=== PATIENT | female | born 1990 ===

== ENCOUNTER 2020-12-02 08:22 | Emergency (ER) | payer MEDICARE, MEDICAID, SELFPAY ==
[2020-12-02 08:25] VITALS: BP 102/82; PULSE 105; RESP 18; TEMP 36.6; O2SAT 100; BMI 23.9
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
--- NOTE | 2020-12-02 09:27 | PC.NURSE ---
Edit to triage completed on patients arrival to ED. Patient states she is not .
== END 2020-12-02 09:05 | disposition left against medical advice (07) ==
PROVIDERS: Emergency Provider Emergency Medicine
DX: S40.871A Other superficial bite of right upper arm, initial encounter (principal); M79.601 Pain in right arm; Y04.1XXA Assault by human bite, initial encounter; Y93.9 Activity, unspecified; Y92.9 Unspecified place or not applicable; Y99.9 Unspecified external cause status
CPT/HCPCS: 90471; 99282; 99284

== ENCOUNTER 2021-02-28 17:24 | Emergency (ER) | payer MEDICARE, MEDICAID, SELFPAY | END 2021-02-28 20:18 | disposition left against medical advice (07) | LOC: HO.ED 20:03 | PROVIDERS: Emergency Provider Emergency Medicine | DX: N23 Unspecified renal colic (principal) ==

== ENCOUNTER 2021-03-01 06:09 | Emergency (ER) | payer MEDICARE, MEDICAID, SELFPAY ==
--- NOTE | ~2021-03-01 | US_ITS ---
EXAMINATION: RENAL ULTRASOUND. CLINICAL INFORMATION: Right-sided flank pain. Evaluate for stone. COMPARISON: None TECHNIQUE: Routine grayscale imaging of kidneys is performed. FINDINGS: The right kidney is normal size, shape and density. It measures 11.0 cm in length, 3.5 cm in AP and 6.1 cm in transverse dimension. There is normal cortical thickness. No echogenic stones, cysts or hydronephrosis seen. There is minimal fullness of kidney pelvis. The left kidney was not imaged. US/US renal RT IMPRESSION: Unremarkable right kidney exam. No echogenic stone seen.
[2021-03-01 06:34] VITALS: BP 125/79; PULSE 114; RESP 18; TEMP 37.4; O2SAT 98; BMI 23.9
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
[2021-03-01] MEDS: 0.9 % Sodium Chloride 1,000 ML 999 ML IVCONT (07:50)
[2021-03-01 07:55] LABS: Basophils Percent Auto 0.2 % (0-2); Eosinophils Percent Auto 0.2 % (0-4); Hematocrit 36.2 % (37-47); Hemoglobin 12.1 g/dl (12.0-16.0); Imm Gran Abs Auto 0.15 X10*3/uL (0.00-0.03); Imm Gran Pct Auto 0.9 % (0.0-0.4); Lymphocytes Absolute Auto 1.1 X10*3/uL (1.2-4.9); Lymphocytes Percent Auto 6.7 % (20-40); MANUAL DIFF FLAG SCAN; Mean Corpuscular HGB Conc 33.4 g/dl (31.0-35.0); Mean Corpuscular Hemoglobin 29.4 pg (27.0-33.0); Mean Corpuscular Volume 87.9 fL (80-98); Mean Platelet Volume 9.8 fL (9.4-12.3); Monocytes Absolute Auto 1.6 X10*3/uL (0.1-1.2); Monocytes Percent Auto 9.4 % (2-11); Neutrophils Percent Auto 82.6 % (45-73); Platelet Count 200 X10*3/uL (160-400); Red Blood Count 4.12 X10*6/uL (4.20-5.50); Red Cell Distribution Width 12.8 % (11.0-16.0); SCAN SMEAR FLAG 1
[2021-03-01] MEDS: HYDROcodone Bit/Acetam 5/325 TABLET 1 TAB PO (07:55)
[2021-03-01 07:56] LABS: Glucose Urine UA NEG (NEG); Leukocyte Esterase Urine 2+ (NEG); Nitrite Urine POS (NEG); UACC Culture Trigger YES; Urine Blood 1+ (NEG); Urine Ketones 5 MG/DL (NEG); Urine Protein 2+ MG/DL (NEG-TRACE)
[2021-03-01] MEDS: Ketorolac Tromethamine 15 MG/ML VIAL IVPUSH (07:56)
[2021-03-01] MEDS: ondansetron HCL 4 MG/2 ML VIAL IVPUSH (07:56)
[2021-03-01 07:58] LABS: Appearance Urine CLOUDY; Color Urine YELLOW
[2021-03-01 07:59] LABS: UPreg QC Valid YES; Urine Pregnancy NEGATIVE (NEGATIVE)
[2021-03-01 08:06] LABS: Bacteria Urine 2+ /LPF; Mucus Urine 1+ /LPF; Squamous Epithelial Cell Urine 2+ /LPF
[2021-03-01 08:18] LABS: Alanine Aminotransferase 12 U/L (0-31); Albumin Level 3.7 g/dL (3.5-5.0); Alkaline Phosphatase 96 U/L (39-117); Anion Gap 14 (12-20); Aspartate Amino Transferase 15 U/L (5-31); Bilirubin Direct 0.2 mg/dL (0.0-0.5); Bilirubin Total 0.6 mg/dL (0.0-1.0); Blood Urea Nitrogen 7 mg/dL (9-16); Calcium 8.9 mg/dL (8.4-10.2); Carbon Dioxide 21 mmol/L (22-29); Chloride 104 mmol/L (96-108); Creatinine Clr Calc Pharmacy 83.2; Estimated Glomerular Filt Rate > 60; Glucose Random 109 mg/dL (60-115); Lipase 10 U/L (8-78); Magnesium 1.9 mg/dL (1.6-2.6); Potassium 3.6 mmol/L (3.3-5.1); SLIDE REVIEW VERIFIED; Sodium 135 mmol/L (135-145); Total Protein 6.5 g/dL (6.5-8.0)
[2021-03-01] MEDS: cefTRIAXone sodium 1 GM in 0.9 % Sodium Chloride 50 ML IV (08:40)
[2021-03-01 08:50] VITALS: BP 107/56; PULSE 79; RESP 18; TEMP 37.5
[2021-03-01 08:59] LABS: Lactic Acid 0.6 mmol/L (0.5-2.0)
[2021-03-01 11:00] LABS: CT PCR NOT DETECTED (Not Detect.); NG PCR NOT DETECTED (Not Detect.)
== END 2021-03-01 10:10 | disposition home or self-care (01) ==
PROVIDERS: Emergency Provider Emergency Medicine
DX: N12 Tubulo-interstitial nephritis, not specified as acute or chronic (principal); R11.0 Nausea; Z87.440 Personal history of urinary (tract) infections
CPT/HCPCS: 36415; 76775; 80048; 80076; 81001; 81025; 83605; 83690; 83735; 85025; 87040; 87077; 87086; 87088; 87186; 87205; 87491; 87591; 96361; 96365; 96375; 99284; J0696; J1885; J2405

== ENCOUNTER 2021-05-09 09:35 | Emergency (ER) | payer MEDICARE, MEDICAID, SELFPAY ==
--- NOTE | 2021-05-09 10:41 | ED.ABDPAIN ---
HPI - Abdominal Pain General Stated Complaint: flank pain, seeking detox Time Seen by Provider: 05/09/21 10:41 Source: patient Mode of arrival: ambulatory Limitations: no limitations Related Data Previous Rx's Medication Instructions Recorded cefuroxime axetil 500 mg tablet 500 mg PO BID 10 Days #20 tab 03/01/21 hydrocodone 5 mg-acetaminophen 325 1 tab PO Q6H PRN #12 tab 03/01/21 mg tablet ibuprofen 600 mg tablet 600 mg PO Q6H PRN #30 tab 03/01/21 ondansetron 4 mg disintegrating 4 mg PO Q8H PRN #20 tab 03/01/21 tablet phenazopyridine 100 mg tablet 100 mg PO TID PRN #6 tab 03/01/21 (Pyridium) Allergies Allergy/AdvReac Type Severity Reaction Status Date / Time No Known Allergies Allergy Verified 12/02/20 08:29 Discharge Plan Discharge Prescriptions: No Action cefuroxime axetil 500 mg tablet 500 mg PO BID 10 Days Qty: 20 RF: 0 ondansetron 4 mg tablet,disintegrating 4 mg PO Q8H PRN (Reason: nausea and vomiting) Qty: 20 RF: 0 phenazopyridine [Pyridium] 100 mg tablet 100 mg PO TID PRN (Reason: pain) Qty: 6 RF: 0 hydrocodone-acetaminophen 5-325 mg tablet 1 tab PO Q6H PRN (Reason: pain) Qty: 12 RF: 0 ibuprofen 600 mg tablet 600 mg PO Q6H PRN (Reason: pain) Qty: 30 RF: 0 PMFSH Past Medical History Medical History (Updated 03/02/21 @ 00:01 by Vincenzo Joya) UTI (urinary tract infection) Surgical History Tubal ligation status Social History Social History (Updated 03/01/21 @ 06:47 by Christy Mckeon DO) Patient Tobacco Use Status: Current everyday Tobacco user Substance Use Type: Marijuana
--- NOTE | 2021-05-09 10:44 | PC.NURSE ---
Attempted to call patient into both triage and into the main ED. No answer for account classification clerk no answer for this RN when attempted to call in at [id number]
== END 2021-05-09 11:21 | disposition left against medical advice (07) ==
LOC: HO.ED 11:21
PROVIDERS: Emergency Provider Emergency Medicine
DX: R10.9 Unspecified abdominal pain (principal)

== ENCOUNTER 2023-01-27 21:52 | Emergency (ER) | payer MEDICARE, MEDICAID, SELFPAY ==
[2023-01-27 22:00] VITALS: BP 129/81; PULSE 86; RESP 18; TEMP 37.1; O2SAT 95; BMI 24.8
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
--- NOTE | 2023-01-27 23:19 | ED_ITS ---
HPI - General Adult General Chief complaint: General Medical Stated complaint: dehydrated Time Seen by Provider: 01/27/23 23:16 Source: patient Mode of arrival: ambulatory Limitations: no limitations History of Present Illness HPI narrative: Patient alcoholic homeless for the last 3 days comes here for place to sleep sitting but had beer no vomiting no abdominal pain asking for the food Related Data Home Medications Medication Instructions Recorded Confirmed clonidine HCl 0.2 mg tablet 0.2 mg PO BID 05/29/22 05/29/22 quetiapine 100 mg tablet (Seroquel) 100 mg PO TID 05/29/22 05/29/22 Allergies Allergy/AdvReac Type Severity Reaction Status Date / Time No Known Allergies Allergy Verified 05/29/22 13:35 Review of Systems Review of Systems: Yes all other systems are reviewed and are negative [facility] Past Medical History Medical History UTI (urinary tract infection) Surgical History Tubal ligation status Social History Social History Housing: Homeless Alcohol intake: current Alcohol intake frequency: a few times a month Patient Tobacco Use Status: Current everyday Tobacco user Tobacco use type: Cigarette Smoked in Last 30 Days: No e-Cigarette/Vaping Use: Never Used Second Hand Smoke Exposure: Yes Substance Use Type: Marijuana Advance Directives: No Advance Directives Information Provided: Yes service: No Current occupational status: unemployed and disabled Current occupational exposures/hazards: No Physical Exam ED Vital Signs: Vital Signs - 24 hr 01/27/23 22:00 01/28/23 02:45 Temperature 98.8 F Pulse Rate 86 Respiratory Rate 18 14 Blood Pressure 129/81 Pulse Oximetry 95 Oxygen Delivery Method Room Air BMI result Body Mass Index 24.8 Appearance: Alert. Oriented X3. No acute distress. ETOH+ Eyes: PERRLA, No Nystagmus ENT: Pharynx normal. Oral Mucosa moist Neck: Normal inspection. Neck supple. CVS: Normal heart rate and rhythm. Pulses normal. Respiratory: No respiratory distress. Equal air entry bilateral, no wheezing/rales/rhonchi Abdomen: Soft and nontender. Bowel sounds are present, no mass palpable, no CVA tenderness Skin: Skin warm and dry. Normal skin color. Normal skin turgor. Extremities: No lower extremity edema. No calf tenderness Neuro: Oriented X 3. No motor deficit. Medical Decision Making Medical Decision Making [facility] Narrative: Patient has stable vitals alcoholic does want to go to detox homeless advised to go to residential Discharge Plan Discharge Clinical Impression: Alcohol abuse, Homelessness Patient Disposition: Home, Self-Care Instructions: Abuse of Alcohol (ED) Additional Instructions: Stop drinking alcohol and follow up with detox Try to stay in residential Prescriptions: No Action quetiapine [Seroquel] 100 mg tablet 100 mg PO TID clonidine HCl 0.2 mg tablet 0.2 mg PO BID
[2023-01-28 02:45] VITALS: RESP 14
--- NOTE | 2023-01-28 02:46 | PC.NURSE ---
Pt sleeping at the bedside in no apparent distress. Breaths are even, regular and unlabored. Will continue to monitor.
[2023-01-28 06:06] VITALS: BP 96/60; PULSE 79; RESP 16; TEMP 36.4; O2SAT 94
== END 2023-01-28 06:08 | disposition home or self-care (01) ==
PROVIDERS: Emergency Provider Internal Medicine; PCP Nurse Practitioner Family
DX: F10.10 Alcohol abuse, uncomplicated (principal); Z59.00 Homelessness unspecified
CPT/HCPCS: 99282; 99284

== ENCOUNTER 2023-03-21 13:19 | Emergency (ER) | payer MEDICARE, MEDICAID, SELFPAY ==
--- NOTE | ~2023-03-21 | XR_ITS ---
EXAMINATION: XR FOOT, LEFT CLINICAL INFORMATION: Left foot pain after fall, lateral midfoot COMPARISON: None available. TECHNIQUE: AP, lateral, and oblique views of the left foot. FINDINGS: The bones and soft tissues are normal. No fracture. Alignment is anatomic. Joint spaces are maintained. XR/XR foot LT min 3V IMPRESSION: Normal left foot.
[2023-03-21 13:52] VITALS: BP 124/81; PULSE 77; RESP 19; TEMP 36.6; O2SAT 97; BMI 24.6
--- NOTE | 2023-03-21 13:52 | ED_ITS ---
HPI - General Adult General Chief complaint: Extremity Injury, Lower Stated complaint: L Foot Injury 03/21/23 Time Seen by Provider: 03/21/23 14:24 Source: patient Mode of arrival: ambulatory Limitations: no limitations History of Present Illness HPI narrative: 32-year-old female with history of bipolar 1 disorder, PTSD, anxiety, depression who presents to the ER for evaluation of left lateral foot pain after a fall this morning. She states she inverted the foot and fell onto it while she was play fighting with her daughter today. She states since the injury she has not been able to walk in the foot without a limp. She denies any ankle pain or swelling. No other injuries. No numbness or tingling in the foot. MD complaint: Left lateral foot pain status post fall Onset (ago): hour(s) Location: left and upper extremity Radiation: non-radiation Severity: moderate Severity scale (1-10): 7 Quality: aching Pain Consistency: constant Relieving factors: immobilization and rest Exacerbating factors: movement Associated symptoms: denies other symptoms Treatments prior to arrival: none Related Data Home Medications Medication Instructions Recorded Confirmed clonidine HCl 0.2 mg tablet 0.2 mg PO BID 05/29/22 05/29/22 quetiapine 100 mg tablet (Seroquel) 100 mg PO TID 05/29/22 05/29/22 Allergies Allergy/AdvReac Type Severity Reaction Status Date / Time No Known Allergies Allergy Verified 03/21/23 13:52 Review of Systems Review of Systems: Yes all other systems are reviewed and are negative PMFSH Past Medical History Medical History UTI (urinary tract infection) Surgical History Tubal ligation status Social History Social History Housing: Homeless Alcohol intake: current Alcohol intake frequency: a few times a month Patient Tobacco Use Status: Current everyday Tobacco user Tobacco use type: Cigarette e-Cigarette/Vaping Use: Never Used Second Hand Smoke Exposure: Yes Substance Use Type: Marijuana Advance Directives: No Advance Directives Information Provided: Yes service: No Current occupational status: unemployed and disabled Current occupational exposures/hazards: No Physical Exam ED Vital Signs: Vital Signs - 24 hr 03/21/23 13:52 Temperature 98 F Pulse Rate 77 Respiratory Rate 19 Blood Pressure 124/81 Pulse Oximetry 97 Oxygen Delivery Method Room Air BMI result Body Mass Index 24.6 Appearance: Alert. Oriented X3. No acute distress. HEENT: normal inspection CVS: Normal heart rate and rhythm. Pulses normal. Respiratory: No respiratory distress. Skin: Skin warm and dry. Normal skin color. Normal skin turgor. No rashes. Extremities: left foot with mild swelling over the area of the 5th metatarsal w/ mild erythema, no warmth, tenderness over this area without any point tenderness. foot is warm and well perfused. able to move all toes. no ankle swelling, tenderness, normal ROM of the ankle Neuro: Oriented X 3. No motor deficit. No sensory deficit. Course Course Course Narrative: RME- 32 year old female presents for evaluation of left foot pain after a fall. Plan for x-ray Medical Decision Making Medical Decision Making MDM Narrative: 32-year-old female presents to the ER for evaluation of left lateral foot pain after she inverted the foot and fell when playing with her daughter earlier today. Limited weight-bearing since. No gross deformity on examination, she has some mild swelling and tenderness throughout the area of the 5th metatarsal. Neurovascularly intact distally. X-ray today does not show any evidence of acute fracture. Likely contusion versus sprain. Discussed x-ray results, diagnosis, treatment as well as return precautions. Encourage follow-up with her doctor. Crutches and Raulito wrap provided given her reports of pain with ambulation. She is stable for discharge home with outpatient follow-up as needed. Differential Diagnosis Differential Diagnoses: The differential diagnosis associated with the presentation includes foot fracture, foot sprain, foot contusion, ankle sprain Independent Interpretation I performed an independent interpretation of an: Plain X-Ray Interpretation: No acute fracture appreciated, agree with radiologist read Radiology Impression Discussion of test interpretation with radiology: I have reviewed the radi ologist's reading. Radiologist Impression: EXAMINATION: XR FOOT, LEFT CLINICAL INFORMATION: Left foot pain after fall, lateral midfoot COMPARISON: None available. TECHNIQUE: AP, lateral, and oblique views of the left foot. FINDINGS: The bones and soft tissues are normal. No fracture. Alignment is anatomic. Joint spaces are maintained. XR/XR foot LT min 3V IMPRESSION: Normal left foot. External Record Review External record reviewed: Outpatient record, Prior outpatient labs and Prior outpatient radiology Prescription Management I considered prescription management with: Pain Medication Chronic Conditions Patient?s care impacted by: Other ( history of drug use, anxiety) Critical Care Time Critical Care Time Critical Care Time: No Discharge Plan Discharge Clinical Impression: Contusion of foot, left Qualifiers: Encounter type: initial encounter Qualified Code(s): S90.32XA - Contusion of left foot, initial encounter Patient Disposition: Home, Self-Care Instructions: Foot Contusion (ED) Additional Instructions: Your x-ray today was normal. Rest your foot and elevate your it when possible. Recommend RAULITO wrap for support and compression. Use ice several times per day for the next 48 hours. You may bear weight as tolerated. If pain is too severe, use crutches until better. Take Motrin and/or Tylenol as needed for pain. Follow up with your doctor as needed. Prescriptions: No Action quetiapine [Seroquel] 100 mg tablet 100 mg PO TID clonidine HCl 0.2 mg tablet 0.2 mg PO BID Stand Alone Forms: Work/School Release
== END 2023-03-21 15:42 | disposition home or self-care (01) ==
PROVIDERS: Emergency Provider Internal Medicine; PCP Nurse Practitioner Family
DX: S90.32XA Contusion of left foot, initial encounter (principal); Y29.XXXA Contact with blunt object, undetermined intent, initial encounter; Y93.9 Activity, unspecified; Y92.9 Unspecified place or not applicable; Y99.9 Unspecified external cause status
CPT/HCPCS: 73630; 99282; 99283

== ENCOUNTER 2023-06-02 13:19 | Emergency (ER) | payer MEDICARE, MEDICAID, SELFPAY ==
--- NOTE | ~2023-06-02 | XR_ITS ---
EXAMINATION: XR lumbar spine 2-3V, XR sacrum coccyx min 2V CLINICAL INFORMATION: Reason for Exam lumbar pain after bending down COMPARISON: None. TECHNIQUE: 2 views of the sacrococcygeal region and 3 views of the lumbosacral spine. FINDINGS: Sacrum and coccyx: The bony alignments are intact. The cortices are intact. The soft tissues are unremarkable. Incidental note is made of phleboliths within the left hemipelvis. Number cervical spine: The heights and alignment of the lumbar vertebrae are normal. Intervertebral disc heights appear unremarkable. Posterior appendages are intact. The pre and paraspinal soft tissues are unremarkable. XR/XR sacrum coccyx min 2V IMPRESSION: Unremarkable radiographic appearance of the lumbosacral and sacrococcygeal spine.
--- NOTE | ~2023-06-02 | XR_ITS ---
EXAMINATION: XR lumbar spine 2-3V, XR sacrum coccyx min 2V CLINICAL INFORMATION: Reason for Exam lumbar pain after bending down COMPARISON: None. TECHNIQUE: 2 views of the sacrococcygeal region and 3 views of the lumbosacral spine. FINDINGS: Sacrum and coccyx: The bony alignments are intact. The cortices are intact. The soft tissues are unremarkable. Incidental note is made of phleboliths within the left hemipelvis. Number cervical spine: The heights and alignment of the lumbar vertebrae are normal. Intervertebral disc heights appear unremarkable. Posterior appendages are intact. The pre and paraspinal soft tissues are unremarkable. XR/XR lumbar spine 2-3V IMPRESSION: Unremarkable radiographic appearance of the lumbosacral and sacrococcygeal spine.
[2023-06-02 14:10] VITALS: BP 140/91; PULSE 78; RESP 16; TEMP 36.6; O2SAT 98; BMI 23.5
--- NOTE | 2023-06-02 14:14 | ED_ITS ---
HPI - Back Pain/Injury General Chief Complaint: Back Pain/Injury Stated Complaint: back pain Time Seen by Provider: 06/02/23 14:47 Source: patient, RN notes reviewed and old records reviewed Mode of arrival: ambulatory Limitations: no limitations History of Present Illness HPI Narrative: 33-year-old female with a past medical history bipolar, PTSD, anxiety, depression, presenting to the ED complaining of acute on chronic low back pain s/p bending over to pick something up this morning. Reports felt like something tore. Denies direct injury, trauma or fall, radiation of pain to lower extremities, numbness, tingling, weakness, incontinence/retention, fever, hematuria MD elicited complaint: back pain Related Data Home Medications Medication Instructions Recorded Confirmed clonidine HCl 0.2 mg tablet 0.2 mg PO BID 05/29/22 05/29/22 quetiapine 100 mg tablet (Seroquel) 100 mg PO TID 05/29/22 05/29/22 Previous Rx's Medication Instructions Recorded acetaminophen 500 mg tablet 500 mg PO Q6H PRN fever or pain 06/02/23 (Tylenol Extra Strength) #14 tabs cyclobenzaprine 5 mg tablet 5 mg PO Q8H PRN pain (scale score 06/02/23 7-10) 5 days #14 tabs lidocaine 5 % topical patch 1 patch topical DAILY PRN pain #30 06/02/23 (Lidoderm) ea naproxen 500 mg tablet 500 mg PO BID PRN pain 10 days #20 06/02/23 tabs Allergies Allergy/AdvReac Type Severity Reaction Status Date / Time No Known Allergies Allergy Verified 06/02/23 14:14 Review of Systems Review of Systems: Constitutional: No Fever, No Chills ENT/Mouth: No Ear Pain, No Nasal Congestion, No sore throat, No Rhinorrhea, No Swallowing Difficulty Cardiovascular: No Chest Pain, No SOB Respiratory: No Cough Gastrointestinal: No Nausea, No Vomiting, No Abdominal pain Genitourinary: No Dysuria, No Urinary Frequency, No Hematuria, No Urinary Incontinence/retention, No Flank Pain Musculoskeletal: + joint pain, No Myalgias, No Joint Swelling Skin: No Skin Lesions, No rash Neuro: No Weakness, No Numbness, No Paresthesias Yes all other systems are reviewed and are negative Constitutional: Constitutional: Reports as per HPI Neurologic: Denies Sensory deficit (Neuro) PMF Past Medical History Attestation statement: The following information was validated with the patient. Source: old records reviewed Medical History UTI (urinary tract infection) Surgical History Tubal ligation status Social History Housing: Homeless Alcohol intake: current Alcohol intake frequency: a few times a month Patient Tobacco Use Status: Current everyday Tobacco user Tobacco use type: Cigarette e-Cigarette/Vaping Use: Never Used Second Hand Smoke Exposure: Yes Substance Use Type: Marijuana Advance Directives: No Advance Directives Information Provided: No service: No Current occupational status: unemployed and disabled Current occupational exposures/hazards: No Physical Exam Vital Signs: Vital Signs: Last Vital Signs Temp 97.9 F 06/02/23 14:10 Pulse 78 06/02/23 14:10 Resp 16 06/02/23 14:10 BP 140/91 H 06/02/23 14:10 Pulse Ox 98 06/02/23 14:10 O2 Del Method Room Air 06/02/23 14:10 BMI result Body Mass Index 23.5 Const: General: cooperative, healthy appearing and no acute distress Orientation/consciousness: patient oriented x3 Limitations: no limitations HEENT: Head: Yes normal to inspection and Yes atraumatic Ears: hearing grossly normal bilaterally General nose exam: Normal external nose present Face and sinus: Yes normal facial exam Eyes: General: appearance normal, both eyes and all related structures EOM: EOMs intact bilaterally Neck: Neck: Yes normal visual inspection and Yes no meningeal signs Resp: Effort & Inspection: normal respiratory effort and no respiratory distress Cardio: Rate: regular rate GI: Inspection: Yes normal to inspection Palpation (GI): Soft to palpation, nontender, no guarding and not rigid : General: Yes no CVA tenderness Back/Spine/Pelvis: Other: No midline cervical/thoracic/lumbar spinous tenderness/step-off or deformity. + bilateral lower lumbar paraspinal/sacral tenderness to palpation. No deformity/erythema or rash. Back: no CVA tenderness Skin: Rashes: no rashes Wounds: no wounds Neuro: Other: Strength intact throughout. No saddle anesthesia. Sensation intact to light touch. Neurovascular intact distally General: patient oriented x3, tone normal, moves all extremities, no meningeal signs, no focal motor deficits and CN's II-XI intact bilaterally Cranial nerves: Yes CN's II-XII intact bilaterally Gait exam (Neuro): Antalgic gait present Motor exam (neuro): 5/5 motor strength present throughout Sensory Exam: No Sensory deficit (Neuro) Extrem: General: Yes normal to inspection Course Course Course Narrative: RME:?33 yo female w/ pmhx of anxiety, depression, PTSD, bipolar 1 disorder presents to ED today with low back pain after bending forward this morning. Reports hearing a snap . Admits to carrying something heavy 2 weeks ago that irriated her back however this had resolved until this morning. Denies numbness/tingling/ weakness into LE. No saddle anesthesia. Denies bowel/bladder incontinence/ retention. No IVDU. PE: +midline lumbar spinous and sacral spinous tenderness. no step off deformity. sensation intact throughout. ambulating w/ steady gait Plan: xrays Full HPI, ROS and PE to be performed by the primary ED provider. XR sacrum coccyx min 2V/XR lumbar spine 2-3V IMPRESSION: Unremarkable radiographic appearance of the lumbosacral and sacrococcygeal spine. >>patient reports sx improvement after meds given in the ED Results discussed with patient including worrisome signs and symptoms and strict return precautions, and when to return to the emergency department. They verbalized understanding and feel safe for discharge at this time. Medications Administered Discontinued Medications Generic Name Dose Route Start Last Admin Trade Name Freq PRN Reason Stop Dose Admin Cyclobenzaprine HCl 10 mg 06/02/23 15:04 06/02/23 15:50 Cyclobenzaprine Hcl 10 Mg Tablet PO 06/02/23 15:05 10 mg ONCE ONE Administration Ketorolac Tromethamine 30 mg 06/02/23 15:04 06/02/23 15:50 Ketorolac Tromethamine 30 Mg/Ml Vial IM 06/02/23 15:05 30 mg ONCE ONE Administration Lidocaine 1 patch 06/02/23 15:04 06/02/23 15:49 Lidocaine 4 % Patch Adh..Patch TRANSDERMA 06/02/23 15:05 1 patch ONCE ONE Administration Protocol Medical Decision Making Medical Decision Making MDM Narrative: 33-year-old female with a past medical history bipolar, PTSD, anxiety, depression, presenting to the ED complaining of acute on chronic low back pain s/p bending over to pick something up this morning. On exam VSS, NAD, nontoxic appearing, PE as above, no red flag sx, ambulating w/steady gait. No saddle anesthesia. Concern for MSK pain/strain and spasming vs herniated disc. Lower suspicion for fracture, cauda equina, cord compression, epidural abscess, renal stone/pyelo or intra-abdominal pathology Plan: X-rays ordered in triage, pain control Please refer to course for remaining clinical decision making, interpretation of labs/imaging results, and discussions with consultants and/or family members. Differential Diagnosis Differential Diagnoses: The differential diagnosis associated with the presentation includes As above Radiology Impression Discussion of test interpretation with radiology: I have reviewed the radiologist's reading. External Record Review External record reviewed: Inpatient record, Office record, Outpatient record, Prior outpatient labs, Prior outpatient radiology, Primary care record and Outside ED record Tests considered The following testing was considered but not selected: As above Prescription Management I considered prescription management with: Pain Medication Chronic Conditions Patient?s care impacted by: Other Discharge Plan Discharge Clinical Impression: Low back pain Patient Disposition: Home, Self-Care Instructions: Acute Low Back Pain (ED) Additional Instructions: Your x-rays are unremarkable. You need to follow-up with a military communications specialist Your pain is likely musculoskeletal Flexeril is a muscle relaxer, take at night as it makes you drowsy, do not drive, drink alcohol, or operate machinery while taking it Naproxen as an anti-inflammatory / pain medication, take with food Lidoderm patches are numbing patches, apply to painful area In addition take Tylenol at home If symptoms persist or worsen, pain becomes unbearable, you developed urinary retention or incontinence, or weakness return to the ED Prescriptions: New acetaminophen [Tylenol Extra Strength] 500 mg tablet 500 mg PO Q6H PRN (Reason: fever or pain) Qty: 14 0RF lidocaine [Lidoderm] 5 % adhesive patch,medicated 1 patch topical DAILY MDD remove after 12 hours PRN (Reason: pain) Qty: 30 0RF Rx Instructions: leave on most painful area for up to 12 hrs naproxen 500 mg tablet 500 mg PO BID PRN (Reason: pain) 10 Days Qty: 20 0RF cyclobenzaprine 5 mg tablet 5 mg PO Q8H PRN (Reason: pain (scale score 7-10)) 5 Days Qty: 14 0RF No Action quetiapine [Seroquel] 100 mg tablet 100 mg PO TID clonidine HCl 0.2 mg tablet 0.2 mg PO BID Referrals: Topher Hunter MD, PhD [Physician] - Albina Alcantara CNP [Primary Care Provider] - Interventions: ED Discharge Assessment Last Done: 06/02/23 17:03 Discharge Date/Time: 06/02/23 17:03
[2023-06-02] MEDS: Lidocaine 4 % Patch ADH..PATCH 1 PATCH TRANSDERMA (15:49)
[2023-06-02] MEDS: Cyclobenzaprine HCl 10 MG TABLET PO (15:50)
[2023-06-02] MEDS: Ketorolac Tromethamine 30 MG/ML VIAL IM (15:50)
--- NOTE | 2023-06-02 15:53 | PC.NURSE ---
awaiting results from x-ray. patient medicated per the SEP for pain. resting quietly on bed with call almonte within reach
--- NOTE | 2023-06-02 17:03 | PC.NURSE ---
patient able to get dressed and ambulate with strong steady gait
== END 2023-06-02 17:03 | disposition home or self-care (01) ==
PROVIDERS: Emergency Provider Emergency Medicine; PCP Nurse Practitioner Family
DX: M54.50 Low back pain, unspecified (principal); F17.210 Nicotine dependence, cigarettes, uncomplicated; F12.90 Cannabis use, unspecified, uncomplicated; Z98.51 Tubal ligation status
CPT/HCPCS: 72100; 72220; 96372; 99283; 99284; J1885

== ENCOUNTER 2023-06-23 03:39 | Emergency (ER) | payer MEDICARE, MEDICAID, SELFPAY ==
[2023-06-23 03:39] VITALS: BP 139/98; PULSE 102; RESP 18; TEMP 36.8; O2SAT 96; BMI 23.7
--- NOTE | 2023-06-23 03:56 | ED.ALCOHOL ---
HPI - Alcohol General Chief Complaint: ETOH/Substance Use Stated Complaint: dehydrated? Time Seen by Provider: 06/23/23 03:55 History of Present Illness HPI narrative: Patient drank alcohol came in for further evaluation denies any suicidal homicidal ideation. Patient states she does not want detox at this time. She wanted to get it later. She got enter an argument with her mother this afternoon police was called. At the time the police office told her to come to the hospital for further evaluation. She denies any fever chills. No chest pain or shortness breath. Denies any heroin or cocaine use. Positive history of EtOH. Positive history of marijuana. Related Data Home Medications Medication Instructions Recorded Confirmed clonidine HCl 0.2 mg tablet 0.2 mg PO BID 05/29/22 05/29/22 quetiapine 100 mg tablet (Seroquel) 100 mg PO TID 05/29/22 05/29/22 Previous Rx's Medication Instructions Recorded acetaminophen 500 mg tablet 500 mg PO Q6H PRN pain (scale 06/02/23 (Tylenol Extra Strength) score 4-6) #14 tabs lidocaine 5 % topical patch 1 patch topical DAILY #15 ea 06/02/23 (Lidoderm) naproxen 500 mg tablet 500 mg PO Q8-12H PRN pain (scale 06/02/23 score 4-6) #14 tabs Allergies Allergy/AdvReac Type Severity Reaction Status Date / Time No Known Allergies Allergy Verified 06/23/23 03:44 Review of Systems Review of Systems: Positive generalized malaise Yes all other systems are reviewed and are negative [facility] Past Medical History Medical History UTI (urinary tract infection) Surgical History Tubal ligation status Social History Social History Housing: Homeless Alcohol intake: current Alcohol intake frequency: a few times a month Patient Tobacco Use Status: Current everyday Tobacco user Tobacco use type: Cigarette e-Cigarette/Vaping Use: Never Used Second Hand Smoke Exposure: Yes Substance Use Type: Marijuana Advance Directives: No Advance Directives Information Provided: No service: No Current occupational status: unemployed and disabled Current occupational exposures/hazards: No Physical Exam ED Vital Signs: Vital Signs - 24 hr 06/23/23 03:39 06/23/23 04:34 Temperature 98.2 F 98.2 F Pulse Rate 102 H 102 H Respiratory Rate 18 18 Blood Pressure 139/98 H 139/98 H Pulse Oximetry 96 97 Oxygen Delivery Method Room Air Room Air BMI result Body Mass Index 23.7 Appearance: Alert. Oriented X3. No acute distress. Eyes: Pupils equal, round and reactive to light. ENT: Pharynx normal. Neck: Normal inspection. Neck supple. No lymph nodes noted. No crepitus CVS: Normal heart rate and rhythm. Pulses normal. Normal S1 and S2 Respiratory: No respiratory distress. Breath sounds normal. No Wheezing. No rales Abdomen: Soft and nontender. No rigidity. No distention. good BS x4 Skin: Skin warm and dry. Normal skin color. Normal skin turgor. Extremities: No lower extremity edema. Neurovascular intact to all extremities. No Lacerations. No Rash Neuro: Oriented X 3. No motor deficit. No sensory deficit. Moving all extermities. No slurred speech Medical Decision Making Medical Decision Making [facility] Narrative: Patient alcohol level was grossly elevated at 233. Currently awaiting sobering. My interpretation of patient's EKG showed a sinus rhythm heart rate is 90 SC QRS QTC within normal limits is no acute ST segment elevation. Will discharge home patient clinically sober Differential Diagnosis Differential Diagnoses: The differential diagnosis associated with the presentation includes Alcohol intoxication Admission/Observation Consideration of admission/observation: Escalation of care including admission/observation considered Lab Data [facility] Lab Attestation statement: I reviewed the patient's lab results. 06/23/23 04:25 06/23/23 04:25 Labs: Lab Results 06/23/23 06/23/23 Range/Units 04:18 04:25 WBC 8.1 (4.8-10.8) X10*3/uL RBC 4.73 (4.20-5.50) X10*6/uL Hgb 13.5 (12.0-16.0) g/dl Hct 41.1 (37.0-47.0) % MCV 86.9 (80.0-98.0) fL MCH 28.5 (27.0-33.0) pg MCHC 32.8 (31.0-35.0) g/dl RDW 12.9 (11.0-16.0) % Plt Count 305 (160-400) X10*3/uL MPV 9.3 L (9.4-12.3) fL Immature Gran % (Auto) 0.4 (0.0-0.4) % Neut % (Auto) 61.7 (45-73) % Lymph % (Auto) 29.5 (20-40) % Simpson % (Auto) 6.3 (2-11) % Eos % (Auto) 1.6 (0-4) % Baso % (Auto) 0.5 (0-2) % Lymph # (Auto) 2.4 (1.2-4.9) X10*3/uL Simpson # (Auto) 0.5 (0.1-1.2) X10*3/uL Eos # (Auto) 0.1 (0.0-0.4) X10*3/uL Baso # (Auto) 0.0 (0.0-0.2) X10*3/uL Abs Immat Gran (auto) 0.03 (0.00-0.03) X10*3/uL Absolute Neuts (auto) 5.0 (2.0-8.3) x10*3/uL Absolute Nucleated RBC 0.000 (0.0-0.012) X10*3/uL Nucleated RBC % (auto) 0.0 (0.0-0.2) /100WBC Sodium 144 (135-145) mmol/L Potassium 3.9 (3.3-5.1) mmol/L Chloride 110 H (96-108) mmol/L Carbon Dioxide 24 (22-29) mmol/L Anion Gap 14 (12-20) BUN 7 L (9-16) mg/dL Creatinine 0.70 (0.5-1.4) mg/dL Estim Creat Clear Calc 93.7 Estimated GFR > 60 Random Glucose 92 (60-115) mg/dL Calcium 8.9 (8.4-10.2) mg/dL Total Bilirubin 0.2 (0.0-1.0) mg/dL Direct Bilirubin < 0.2 (0.0-0.5) mg/dL AST 17 (5-31) U/L ALT 11 (0-31) U/L Alkaline Phosphatase 97 (39-117) U/L Total Protein 7.6 (6.5-8.0) g/dL Albumin 4.3 (3.5-5.0) g/dL Lipase 58 (8-78) U/L Beta HCG, Quant < 2 mIU/mL Urine Color Yellow Urine Appearance Cloudy Urine pH 7.0 (5.0-9.0) Ur Specific [place] 1.010 (1.005-1.025) Urine Protein Negative (Neg-Trace) mg/dL Urine Glucose (UA) Negative (Negative) mg/dL Urine Ketones Negative (Negative) mg/dL Urine Blood Negative (Negative) Urine Nitrite Negative (Negative) Ur Leukocyte Esterase Negative (Negative) Urine RBC 0-2 (0-2) /HPF Urine WBC 0-5 (0-5) /HPF Ur Squamous Epith Cells 11-20 (0-2) /HPF Urine Bacteria Trace (None Seen) Hyaline Casts 0-2 (0-2) /LPF Urine Opiates Screen Not Detected (Not Detect) Urine Fentanyl Screen Not Detected (Not Detect) Ur Barbiturates Screen Not Detected (Not Detect) Ur Phencyclidine Scrn Not Detected (Not Detect) Ur Amphetamines Screen Not Detected (Not Detect) U Benzodiazepines Scrn Not Detected (Not Detect) Urine Cocaine Screen Not Detected (Not Detect) U Marijuana (THC) Screen POSITIVE H (Not Detect) Ethyl Alcohol 233 mg/dL Independent Interpretation I performed an independent interpretation of an: EKG (Sinus rhythm heart rate is 90 SC QRS QTC within normal limits is no acute ST segment elevation) Prescription Management No need for pain medication, antibiotic or antiviral Chronic Conditions History of alcohol abuse history of anxiety and PTSD Social Determinants Patient?s care significantly limited by Social Determinants of Health including: Alcoholism and drug addiction in family Medications Administered Discontinued Medications Generic Name Dose Route Start Last Admin Trade Name Freq PRN Reason Stop Dose Admin Sodium Chloride 1,000 mls @ 999 mls/hr 06/23/23 04:00 06/23/23 05:35 Ns IV 06/23/23 05:00 Infused .Q1H1M [facility] In[facility] Discharge Plan Discharge Clinical Impression: Alcohol intoxication Patient Disposition: Home, Self-Care Instructions: Alcohol Intoxication (ED) Additional Instructions: please go to detox Prescriptions: No Action lidocaine [Lidoderm] 5 % adhesive patch,medicated 1 patch topical DAILY Qty: 15 0RF Rx Instructions: leave on most painful area for up to 12 hrs naproxen 500 mg tablet 500 mg PO Q8-12H PRN (Reason: pain (scale score 4-6)) Qty: 14 0RF acetaminophen [Tylenol Extra Strength] 500 mg tablet 500 mg PO Q6H PRN (Reason: pain (scale score 4-6)) Qty: 14 0RF quetiapine [Seroquel] 100 mg tablet 100 mg PO TID clonidine HCl 0.2 mg tablet 0.2 mg PO BID Referrals: Physician,Unknown J [Primary Care Provider] - 06/25/23
[2023-06-23] MEDS: 0.9 % Sodium Chloride 1,000 ML 999 ML IV (04:29)
[2023-06-23 04:30] LABS: MANUAL DIFF FLAG NO
[2023-06-23 04:33] LABS: Basophils Percent Auto 0.5 % (0-2); Eosinophils Absolute Auto 0.1 X10*3/uL (0.0-0.4); Eosinophils Percent Auto 1.6 % (0-4); Hematocrit 41.1 % (37.0-47.0); Hemoglobin 13.5 g/dl (12.0-16.0); Imm Gran Abs Auto 0.03 X10*3/uL (0.00-0.03); Imm Gran Pct Auto 0.4 % (0.0-0.4); Lymphocytes Absolute Auto 2.4 X10*3/uL (1.2-4.9); Lymphocytes Percent Auto 29.5 % (20-40); Mean Corpuscular HGB Conc 32.8 g/dl (31.0-35.0); Mean Corpuscular Hemoglobin 28.5 pg (27.0-33.0); Mean Corpuscular Volume 86.9 fL (80.0-98.0); Mean Platelet Volume 9.3 fL (9.4-12.3); Monocytes Absolute Auto 0.5 X10*3/uL (0.1-1.2); Monocytes Percent Auto 6.3 % (2-11); Neutrophils Percent Auto 61.7 % (45-73); Platelet Count 305 X10*3/uL (160-400); Red Blood Count 4.73 X10*6/uL (4.20-5.50); Red Cell Distribution Width 12.9 % (11.0-16.0); White Blood Count 8.1 X10*3/uL (4.8-10.8)
[2023-06-23 04:34] VITALS: BP 139/98; PULSE 102; RESP 18; TEMP 36.8; O2SAT 97
[2023-06-23 04:34] LABS: Appearance Urine Cloudy; Color Urine Yellow; Glucose Urine UA Negative (Negative); Leukocyte Esterase Urine Negative (Negative); Nitrite Urine Negative (Negative); Urine Blood Negative (Negative); Urine Ketones Negative (Negative); Urine Protein Negative (Neg-Trace)
--- OUTSIDE RECORDS SUMMARY | 2023-06-23 04:34 | XMS_ITS | Continuity of Care Document ---
Author Name Unknown Organization [facility] ter Address [address] [place] [id number]- Care Team Providers Care Home Care Scheduler Name Role Phone Not on Staff, PCP Primary Care Physician Unavail able Encounter [facility] [place](s): 06/10/23 - 06/10/[address] [address]- Encounter Diagnosis Back pain(Final) - 06/10/23 Discharge Disposition: A-D/C Home Attending Physician: Joann Bustamante MD Admitting Physician: Joann Bustamante MD Referring Physician: Not on Staff, Referring MD Allergies, Adverse Reactions, Alerts No Known Allergies Medications ibuprofen 600 mg oral tablet 600 mg, 1, tablet, By Mouth, Every 8 hours, # 30 tablet, Refills 0, Tot. Refills 0, Maintenance, 06/10/23 12:57:00 EST, Route to Pharmacy Electronically, [facility], Partial fill upon patient request if the prescription is for a sc... Start Date: 06/10/23 Status: Ordered Lidoderm 5% film 1 patch, Topically, Daily, # 30 patch, 0 Refills, Maintenance, 06/10/23 12:58:00 EST, [facility], Partial fill upon patient request if the prescription is for a schedule II opioiddrug., 1 patch Topically Daily, 160, cm, 06/10/23 1... Start Date: 06/10/23 Status: Ordered Results Radiology Reports * Exam Date Time Procedure Performing Provider Status 06/10/23 11:[address] Lumbar Spine W/O Contrast Agnes Jefferson; Auth (Verified) Notes: (CT Lumbar Spine W/O Contrast) Reason For Exam: Spine fracture, lumbar, traumatic;Other: RESULT: CT Lumbar Spine W/O Contrast CT Lumbar Spine W/O Contrast Hx of Present Illness: pt stated that she was unconcisous due to ETOH and someone called EMS to bring her here, 8 out of 10 back pain CLINICAL QUESTION: Fracture/Dislocation TECHNIQUE: Thin section axial images were acquired through the lumbar spine. Bone and soft tissue algorithms were reconstructed along with coronal and sagittal reformats. Weight-based protocol using automatic tube modulation was used to optimize exposure parameters. CTDIvol Body: 12.50 mGy, DLP Body: 437 mGy*cm. COMPARISON: None FINDINGS: Elevator Operator Service View Findings, Lines and Tubes: None. Normal bony components. No bone lesions or fractures. No arthritic changes. Moderate central L4-5 disc bulge. There are two 2 mm Nonobstructing right renal stones. IMPRESSION: 1. Moderate L4-5 disc bulge but otherwise normal lumbar spine. 2. Small nonobstructing right renal stones. WSN: [id number] Ordering Physician: Joann Bustamante Dictated By: Yoseph Licea MD Dictated Date/Time: 06/10/23 12:42 p Reviewed By: Yoseph Licea MD Signed By: Yoseph Licea MD Signed Date/Time: 06/10/23 12:42 pm Transcribed By: RALPH Transcribed Date/Time: 06/10/23 12:37 pm Vital Signs Most recent to oldest [Reference Range]: 1 2 3 Height 160 cm (06/10/23 10:32 AM) 160 cm (06/10/23 7:23 AM) 160 cm (06/10/23 7:17 AM) Oxygen Saturation [94-100 %] 97 % (06/10/23 10:32 AM) 96 % (06/10/23 7:17 AM) 100 % (06/10/23 7:13 AM) Pulse Rate [55-90 bpm] 85 bpm (06/10/23 10:32 AM) 101 bpm *H* (06/10/23 7:17 AM) 109 bpm *H* (06/10/23 7:13 AM) Blood Pressure [90-138/55-84 mm Hg] 146/109mm Hg *H* (06/10/23 10:32 AM) 118/88mm Hg (06/10/23 7:17 AM) Respiratory Rate [16-30 br/min] 18 br/min (06/10/23 10:32 AM) 18 br/min (06/10/23 7:17 AM) Temperature [96.8-100.4 DegF] 98.5 DegF (06/10/23 7:17 AM) Mode of Delivery (Oxygen) Room air (06/10/23 10:32 AM) Room air (06/10/23 7:17 AM) Room air (06/10/23 7:13 AM) Blood pressure sites Arm, left (06/10/23 10:32 AM) Arm, left (06/10/23 7:17 AM) Temperature Route Oral (06/10/23 7:17 AM) Dry Weight 61.5 kg (06/10/23 10:32 AM) 61.5 kg (06/10/23:23 AM) 61.5 kg (06/10/23 7:17 AM) Dry Weight Obtained Via Patient/family s tated (06/10/23 7:17 AM) Social History Social History Type Response Smoking Status 10 or more cigarette s (1/2 pack or more)/day in last 30 days entered on: 09/26/22 Sex Note * David MORALES, Gema Thompson: PERFORM Event Display: Patient Education Leaflets Authored Date: [id number] Back Care Tips ?? [id number] Back Care Tips Caring for your back These are things you can do to prevent a recurrence of acute back pain and to reduce symptoms from chronic back pain: ??? Stay at a healthy weight. If you are overweight, losing weight will help mosttypes of back pain. ??? Exercise is an important part of recovery from most types of back pain. Themuscles behind and in front of the spine support the back. This means strengthening both the back muscles and the belly (abdominal) muscles will provide better support for your spine.? Swimming and brisk walking are good overall exercises to improve your fitness level. ??? Practice safe lifting methods (see below). ??? Practice good posture when sitting, standing, and walking. Don't sit for a long time. This puts more stress on the low back than standing or walking. ??? Wear quality shoes with good arch support. Foot and ankle alignment can affect back symptoms. Don't wear high heels. ??? Therapeutic massage can help relax the back muscles without stretching them. ??? During the first 24 to 72 hours after an acute injury or flare-up of chronic back pain, put an ice pack on the painful area for 20 minutes and then remove it for 20 minutes. Do this over a period of 60 to 90 minutes, or several times a day. As a safety precaution, don't use a heating pad at bedtime. Sleeping on a heating pad can lead to skin lujan or tissue damage. ??? You can alternate using ice and heat. ?? Medicines Talk with your healthcare provider before using medicines, especially if you have other health problems or are taking other medicines. ??? You may use [id number] medicines, such as acetaminophen, ibuprofen, or naproxen to control pain, unless your healthcare provider prescribed other pain medicine. Talk with your provider before taking any medicines if you have a long-term (chronic) condition, such as diabetes, liver or kidney disease, stomach ulcers, or digestive bleeding, or are taking blood thinners. ??? Be careful if you are given prescription pain medicines, opioids, or medicine for muscle spasm. They can cause drowsiness, and affect your coordination, reflexes, and judgment. Don' t drive or operate heavy machinery while taking these types of medicines. Take prescription pain medicine only as prescribed by your provider. ?? Lumbar stretch This simple stretch will help relax muscle spasm and keep your back more limber. If exercise makes your back pain worse, don???t do it. ??? Lie on your back with your knees bent and both feet on the ground. ??? Slowly raise your left knee to your chest as you flatten your low back against the floor. Hold for 5 seconds. ??? Relax and repeat the exercise with your right knee. ??? Do 10 of these exer cises for each leg. ?? Safe lifting method ??? Don???t bend over at the waist to lift an object off the floor.?? Instead, bend your knees and hips in a squat.? Keep your back and head upright ??? Hold the object closeto your body, directly in front of you. ??? Straighten your legs to lift the object.? Lower the object to the floor in the reverse fashion. ??? If you must slide something across the floor, push it. ?? Posture tips Sitting Sit in chairs with straight backs or low-back support. Keep your knees lower than your hips, with your feet flat on the floor. When driving, sit up straight. Adjust the seat forward so you are not leaning toward the steering wheel.??A small pillow or rolled towel behind your low back may help if you are driving long distances.?? Standing When standing for long periods, shift most of your weight to one leg at a time. Switch legs every few minutes.?? Sleeping The best way to sleep is on your side with your knees bent. Put a low pillow under your head to support your neck in a neutral spine position. Don't use thick pillows that bend your neck to one side.Put a pillow between your legs to further relax your low back. If you sleep on your back, put pillows under your knees to support your legs in a slightly flexed position. Use a firm mattress. If yourmattress sags, replace it, or use a 1/2-inch plywood board under the mattress to add support. ?? Follow-up care Follow up with your??healthcare provider as advised. If X-rays, a CT scan, or an MRI scan were taken, they may be reviewed by a radiologist. You will betold of any new findings that may affect your care. ?? Call 911 Call 911 if any of the following occur: ??? Trouble breathing ??? Confusion ??? Very drowsy ??? Fainting or loss of consciousness ??? Very fast or very slow heart rate ??? Loss of??bowel or bladder control ?? When to get medical advice Call your healthcare provider right away??if any of these occur: ??? Pain becomes worse or spreads to your arms or legs ??? Weakness or numbness in 1 or both arms or legs ??? Numbness in the groin area ?? Last Reviewed Date: 2022 ?? [id number] [employer]. All rights reserved. This information is not intended as a substitute for professional medical care. Always follow your healthcare professional's instructions. ?? * David MORALES, Gema Thompson: PERFORM Event Display: Patient Education Leaflets Authored Date: [id number] General Neck and Back Pain ?? [id number] General Neck and Back Pain Both neck and back pain are usually caused by injury to the muscles or ligaments of the spine. Sometimes the disks that separate each bone of the spine may cause pain by pressing on a nearby nerve. Back and neck pain may appear after a sudden twisting or bending force (such as in a car accident), or sometimes after a simple awkward movement. In either case, muscle spasm is often present and adds to the pain. Acute neck and back pain usually gets better in 1 to 2 weeks. Pain related to disk disease, arthritis in the spinal joints, or narrowing of the spinal canal (spinal stenosis) can become chronic and last for months or years. Back and neck pain are common problems. Most people feel better in 1 or 2 weeks, and most of the rest in 1 to 2 months. Most people can stay active. People have and??describe pain differently. ??? Pain can be sharp, stabbing, shooting, aching, cramping, or burning. ??? Movement, standing, bending, lifting, sitting, or walking may worsen the pain. ??? Pain can be limited to 1 spot or area, or it can be more generalized. ??? Pain can spread upward, downward, to the front, or go down your arms or legs. ??? Muscle spasm may occur. Most of the time, mechanical problems with the muscles or spine cause the pain. It's usually causedby an injury, whether known or not, to the muscles or ligaments. Pain without an injury is not common. But it can sometimes be caused by a health problem such as kidney stones or an infection. Pain is usually related to physical activity such as sports, exercise, work, or normal activity. Sometimesit can occur without an identifiable cause. This can happen simply by stretching or moving wrong, without noting pain at the time. Other causes include: ??? Overexertion, lifting, pushing, pulling incorrectly or too aggressively. ??? Sudden twisting, bending or stretching from an accident (car or fall), or accidental movement. ??? Poor posture ??? Poor conditioning, lack of regular exercise ??? Spinal disc disease or arthritis ??? Stress ??? , or illness like appendicitis, bladder or kidney infection, pelvic infections ??Home care ??? For??neck pain:??Use a comfortable pillow that supports the head and keeps the spine in a neutral position. The position of the head should not be tilted forward or backward. ??? Whenin bed, try to find a comfortable position. A firm mattress is best. Try lying flat on your back with pillows under your knees. You can also try lying on your side with your knees bent up toward yourchest and a pillow between your knees. ??? At first, don't try to stretch out the sore spots. If there's a strain, it's not like the good soreness you get after exercising without an injury. In this case, stretching may make it worse. ??? Don't sit for long periods, as in??long car rides or??other travel. This puts more stress on the low back than standing or walking. ??? During the first 24 to 72 hours after an injury, apply an ice pack to the painful area for 20 minutes and then remove it for20 minutes over a period of 60 to 90 minutes or several times a day.? You can alternate ice and heat therapies. Talk with your healthcare provider about the best treatment for your back or neck pain. As a safety measure, don't use a heating pad at bedtime. Sleeping with a heating pad can lead to skin lujan or tissue damage. ??? Therapeutic massage can help relax the back and neck muscles without stretching them. ??? Be aware of safe lifting methods. Don't lift anything over 15 pounds untilall the pain is gone. ?? Medicines Talk to your healthcare provider before using medicine, especially if you have other health problems or are taking other medicines. ??? You may use bjhr-gco-phhabhj medicine to control pain, unless another pain medicine was prescribed. Talk with your provider first if you have chronic conditions like diabetes, liver or kidney disease, stomach ulcers, gastrointestinal bleeding, or are taking bloodthinner medicines. ??? Be careful if you're given pain medicines, narcotics, or medicine for musclespasm. They can cause drowsiness. It can affect your coordination, reflexes, and judgment. Don't drive or operate heavy machinery. ?? Follow-up care Follow up with your healthcare provider as advised. You may need physical therapy or more tests. If X-rays were taken, you'll be told of any new findings that may affect your care. ?? Call 911 Call 911 if any of these occur: ??? Trouble breathing ??? Confusion ??? Very drowsy or trouble waking up ??? Fainting or loss of consciousness ??? Very fast or very slow heart rate ??? Loss of bowel or bladder control ?? When to get medical advice Call your healthcare provider right away if any of these occur: ??? Pain gets worse or spreads intoyour arms or legs ??? Weakness, numbness, or pain in 1 or both arms or legs ??? You have changes inbowel or bladder function ??? Numbness in the groin area ??? Trouble walking ??? Fever of 100.4??F (38??C) or higher, or as advised by your provider ?? Last Reviewed Date: 2021 ?? [id number] [employer]. All rights reserved. This information is not intended as a substitute for professional medical care. Always follow your healthcare professional's instructions. ?? Patient Care team information Care Team Personnel Name: Not on Staff, PCP Position: [facility] Physician (General Medicine) Member Role: PCP Name: Gema Uribe Position: [facility] Associate Professional Member Role: ED Physician Acls Nurse Address: Address: [address] [place] [address] Name: Clementina Hough Position: [facility] ED TA [facility] Member Role: Patient Access Name: Joann Bustamante MD Position: [facility] Resident Member Role: Admitting Physician Address: Address: [address] [place] [address] Name: Diane Velazquez RN Position: [facility] ED RN W/OE and Tasks Member Role: Patient Care Provider Care Team Related Persons Name: JUANCARLOS CARLTON Address: [place] [address]
--- OUTSIDE RECORDS SUMMARY | 2023-06-23 04:34 | XMS_ITS | Continuity of Care Document ---
Author Name Unknown Organization [facility] ter Address [address] [place] [id number]- Care Team Providers Care Assistant Distribution Manager Name Role Phone Not on Staff, PCP Primary Care Physician Unavail able [place] [facility] [place]23 - 06/10/[address] [address]- Encounter Diagnosis Alcohol intoxication(Final) - 06/10/23 Discharge Disposition: A-D/C Home Attending Physician: Jenn Hernandez MD Admitting Physician: Jenn Hernandez MD Referring Physician: Not on Staff, Referring MD Allergies, Adverse Reactions, Alerts No Known Allergies Medications ibuprofen 600 mg oral tablet 600 mg, 1, tablet, By Mouth, Every 8 hours, # 30 tablet, Refills 0, Tot. Refills 0, Maintenance, 06/10/23 12:57:00 EST, Route to Pharmacy Electronically, [facility], Partial fill upon patient request if the prescription is for a sc... Start Date: 06/10/23 Status: Ordered Lidoderm 5% film 1 patch, Topically, Daily, # 30 patch, 0 Refills, Maintenance, 06/10/23 12:58:00 EST, [facility], Partial fill upon patient request if the prescription is for a schedule II opioiddrug., 1 patch Topically Daily, 160, cm, 06/10/23 1... Start Date: 06/10/23 Status: Ordered Results Radiology Reports * Exam Date Time Procedure Performing Provider Status 06/10/23 4:[address] Head/Brain W/O Contrast Stupak , Ol eg; Auth (Verified) Notes: (CT Head/Brain W/O Contrast) Reason For Exam: AMS;Other: RESULT: CT Head/Brain W/O Contrast CT Head/Brain W/O Contrast INDICATION: pt BIBA, found behind dumpster outside of a hotel. Pt endorses ETOH use.; Reason: Other:; AMS; Clinical Question(s): Hematoma TECHNIQUE: Noncontrast head CT using axial technique and reconstructed in axial and coronal planes.Iterative reconstruction techniques are used to optimize dose and image quality. CTDIvol Head: 46.20 mGy, DLP Head: 773 mGy*cm. COMPARISON: 07/16/2022 FINDINGS: Germination Worker view findings, lines and tubes: None. BRAIN AND EXTRA-AXIAL SPACES: No parenchymal hemorrhage, midline shift, or mass effect. Smith-white matter differentiation is wellpreserved. No acute infarct. Ventricles, sulci, and basilar cisterns are normal. No white matter lesions. No subarachnoid hemorrhage. No subdural or epidural collection. CALVARIUM, SKULL BASE, AND SOFT TISSUES: No fractures or suspicious bony lesions. The paranasal sinuses and mastoid air cells are clear. Visualized orbits and globes are intact. The extracranial soft tissues are unremarkable. IMPRESSION: No acute intracranial pathology. I have personally reviewed the images and I agree with this report. WSN: [id number] Ordering Physician: Jenn Hernandez Dictated By: Efraín Salas DO Dictated Date/Time: 06/10/23 5:08 am Reviewed By: Kristin Bang MD Signed By: Kristin Bang MD Signed Date/Time: 06/10/23 5:13 am Transcribed By: RALPH Transcribed Date/Time: 06/10/23 4:43 am Vital Signs Most recent to oldest [Reference Range]: 1 2 3 Oxygen Saturation [94-100 %] 99 % (06/10/23 6:51 AM) 98 % (06/10/23 4:49 AM) 100 % (06/10/23 12:49 AM) Pulse Rate [55-90 bpm] 96 bpm *H* (06/10/23 6:51 AM) 89 bpm (06/10/23 4:49 AM) 83 bpm (06/10/23 12:49 AM) Blood Pressure [90-138/55-84 mm Hg] 120/77mm Hg (06/10/23 6:51 AM) 109/71mm Hg (06/10/23 4:49 AM) 131/71mm Hg (06/10/23 12:49 AM) Respiratory Rate [16-30 br/min] 17 br/min (06/10/23 6:51 AM) 16 br/min (06/10/23 4:49 AM) 16 br/min (06/10/23 12:49 AM) Temperature [96.8-100.4 DegF] 97.5 DegF (06/10/23 6:51 AM) 97.4 DegF (06/10/23 2:05 AM) Mode of Delivery (Oxygen) Room air (06/10/23 6:51 AM) Room air (06/10/23 4:49 AM) Room air (06/10/23 12:49 AM) Blood pressure sites Arm, right (06/10/23 6:51 AM) Temperature Route Oral (06/10/23 6:51 AM) Oral (06/10/23 2:05 AM) Social History Social History Type Response Smoking Status 10 or more cigarette s (1/2 pack or more)/day in last 30 days entered on: 09/26/22 Sex Patient Care team information Care Team Personnel Name: Not on Staff, PCP Position: [facility] Physician (General Medicine) Member Role: PCP Name: Ritu Guerrero NP Position: [facility] Associate Professional Member Role: ED Physician [place] Address: Address: [address] [place] [address] Name: Jenn Hernandez MD Position: [facility] ED Medicine MD Member Role: Admitting Physician Address: Address: [address] [place] [address] Name: Blanca Jolly Position: [facility] ED TA [facility] Member Role: Patient Care Provider Name: Sierra Mancuso RN Position: [facility] ED RN W/OE and Tasks Member Role: Patient Care Provider Name: Lesa Pierre RN Position: [facility] ED RN W/OE and Tasks Member Role: Patient Care Provider Care Team Related Persons Name: BIANKA JUANCARLOS Address: [place] [address]
--- NOTE | 2023-06-23 04:36 | PC.NURSE ---
Pt ca&ox4, no signs of distress. Pt changed into hospital attire. Pts belonging placed in decon. Pt denies pain. Pt reports she had an argument with mom and the shift commander were called. Police gave her the choice to come here to sober up or [facility]. Labs drawn and sent IV placed and fluids started. Plan of care ongoing.
[2023-06-23 04:38] LABS: Bacteria Urine Trace (None Seen); Hyaline Casts Urine 0-2 /LPF (0-2); RBC Urine 0-2 /HPF (0-2); WBC Urine 0-5 /HPF (0-5)
[2023-06-23 04:43] LABS: Amphetamine Screen Urine Not Detected (Not Detect); Barbiturates, Urine Not Detected (Not Detect); Benzodiazepines Screen Urine Not Detected (Not Detect); Cannabinoid Screen Urine POSITIVE (Not Detect); Cocaine Screen Urine Not Detected (Not Detect); Fentanyl, urine Not Detected (Not Detect); Opiate Screen Urine Not Detected (Not Detect); Phencyclidine Screen Urine Not Detected (Not Detect)
[2023-06-23 04:57] LABS: Alanine Aminotransferase 11 U/L (0-31); Albumin Level 4.3 g/dL (3.5-5.0); Alkaline Phosphatase 97 U/L (39-117); Anion Gap 14 (12-20); Aspartate Amino Transferase 17 U/L (5-31); Bilirubin Direct < 0.2 mg/dL (0.0-0.5); Bilirubin Total 0.2 mg/dL (0.0-1.0); Blood Urea Nitrogen 7 mg/dL (9-16); Calcium 8.9 mg/dL (8.4-10.2); Carbon Dioxide 24 mmol/L (22-29); Chloride 110 mmol/L (96-108); Creatinine Clr Calc Pharmacy 93.7; Estimated Glomerular Filt Rate > 60; Ethanol 233 mg/dL; Glucose Random 92 mg/dL (60-115); Lipase 58 U/L (8-78); Potassium 3.9 mmol/L (3.3-5.1); Sodium 144 mmol/L (135-145); Total Protein 7.6 g/dL (6.5-8.0)
[2023-06-23 05:02] LABS: HCG Quantitative < 2 mIU/mL
--- NOTE | 2023-06-23 06:39 | ECG_ITS ---
Test Reason : ETOH Blood Pressure : / mmHG Vent. Rate : 090 BPM Atrial Rate : 090 BPM P-R Int : 188 ms QRS Dur : 086 ms QT Int : 368 ms P-R-T Axes : 072 065 042 degrees QTc Int : 450 ms Normal sinus rhythm Early repolarization Normal ECG When compared with ECG of 10-JUN-2003 11:04, No significant changes seen Referred By: Sumaya Bailey Electronically Signed By:Froylan Contreras
--- NOTE | 2023-06-23 06:56 | PC.NURSE ---
Resumed care of patient, all needs met at this time, safety measures in place, awaiting dispo at this time
--- NOTE | 2023-06-23 09:07 | PC.NURSE ---
care team w pt at bedside. regular breathing. no distress. calm, coop.
--- NOTE | 2023-06-23 09:20 | MHC.RECOVRN ---
Met with pt in ED6 after pt requested ATS. Pt had presented to the ED from home seeking detox from ETOH, denies SI/HI. Pt laying in bed, asleep, easily wakes to voice. Pt reports alcohol use, approx 6 nips Fireball daily x 1 month. Denies other substances. Pt reports having been in treatment recently including ATS, [facility], [facility]. Pt is tearful and help seeking. Pt is willing to go anywhere for ATS. Pt denies questions or concerns at this time. T/w will conduct bedsearch.
[2023-06-23 09:25] VITALS: BP 118/81; PULSE 88; RESP 16; TEMP 36.3; O2SAT 97
--- NOTE | 2023-06-23 09:53 | MHC.RECOVRN ---
ATS bed available at [facility] in [place], pt declined bed. Pt provided with list of ATS facilities if she would like to follow up from the community. Provider and RN aware.
--- NOTE | 2023-06-23 10:02 | PC.NURSE ---
piv removed. CIWA 0. aox4. getting belongings w seucirty on departure. no resp distress.
== END 2023-06-23 09:50 | disposition home or self-care (01) ==
PROVIDERS: Emergency Medicine Emergency Medical Services; Emergency Provider Emergency Medicine
DX: F10.920 Alcohol use, unspecified with intoxication, uncomplicated (principal); Y90.7 Blood alcohol level of 200-239 mg/100 ml; F31.9 Bipolar disorder, unspecified; F43.10 Post-traumatic stress disorder, unspecified; F41.9 Anxiety disorder, unspecified; Z79.899 Other long term (current) drug therapy
CPT/HCPCS: 36415; 80048; 80076; 80307; 81001; 83690; 84702; 85025; 93005; 99285

== ENCOUNTER → 2023-06-23 06:39 | Outpatient (BNV) | payer MEDICARE, MEDICAID, SELFPAY | PROVIDERS: Emergency Provider Emergency Medicine; Visit Provider Internal Medicine Cardiovascular Disease | DX: F10.129 Alcohol abuse with intoxication, unspecified (principal) | CPT/HCPCS: 93010 ==

== ENCOUNTER 2023-09-01 02:43 | Emergency (ER) | payer MEDICARE, MEDICAID, SELFPAY ==
[2023-09-01 02:58] VITALS: BP 146/90; PULSE 68; RESP 17; TEMP 36.3; O2SAT 96
[2023-09-01 03:07] VITALS: BP 126/76; PULSE 60; O2SAT 100
--- NOTE | 2023-09-01 03:17 | ED.PSYCH ---
HPI - Psych General Chief Complaint: ETOH/Substance Use Stated Complaint: etoh Time Seen by Provider: 09/01/23 03:10 Source: patient Mode of arrival: EMS Limitations: no limitations History of Present Illness HPI Narrative: 33-year-old female with a history of alcohol use disorder and cocaine use disorder who presents emergency department by ambulance for evaluation of acute alcohol intoxication. Patient states that she drank a small bottle of fireball and used cocaine. She states she is living with her mother and when she went home her mother would not let her in the house because she was intoxicated and the mother called an ambulance. Patient was then brought to emergency department. On arrival she states she does not want to be here and that she does not want further help. She denied being suicidal or homicidal. Related Data Home Medications Medication Instructions Recorded Confirmed clonidine HCl 0.2 mg tablet 0.2 mg PO BID 05/29/22 05/29/22 quetiapine 100 mg tablet (Seroquel) 100 mg PO TID 05/29/22 05/29/22 Previous Rx's Medication Instructions Recorded acetaminophen 500 mg tablet 500 mg PO Q6H PRN pain (scale 06/02/23 (Tylenol Extra Strength) score 4-6) #14 tabs lidocaine 5 % topical patch 1 patch topical DAILY #15 ea 06/02/23 (Lidoderm) naproxen 500 mg tablet 500 mg PO Q8-12H PRN pain (scale 06/02/23 score 4-6) #14 tabs Allergies Allergy/AdvReac Type Severity Reaction Status Date / Time No Known Allergies Allergy Verified 06/23/23 03:44 Review of Systems Review of Systems: Yes all other systems are reviewed and are negative [facility] Past Medical History [facility] Narrative: Social history: She does smoke cigarettes. She does drink alcohol. She does use cocaine and used cocaine today. Medical History UTI (urinary tract infection) Surgical History Tubal ligation status Social History Social History Housing: Homeless Unable to assess alcohol history related to: Refusing to respond Alcohol intake: current Alcohol intake frequency: a few times a month Patient Tobacco Use Status: Current everyday Tobacco user Tobacco use type: Cigarette e-Cigarette/Vaping Use: Never Used Second Hand Smoke Exposure: Yes Substance Use Type: Marijuana service: No Current occupational status: unemployed and disabled Current occupational exposures/hazards: No Physical Exam Vital Signs: Vital Signs: Last Vital Signs Temp 97.4 F 09/01/23 03:24 Pulse 68 09/01/23 03:24 Resp 17 09/01/23 03:24 BP 146/90 H 09/01/23 03:24 Pulse Ox 96 09/01/23 03:24 O2 Del Method Room Air 09/01/23 03:24 BMI result Body Mass Index 22.1 Vital signs revealed an elevated BP of 146/90 Exam General: Awake, alert in no distress Head: Normocephalic, atraumatic EENT: PERRL, Lids normal, sclera normal, conjunctiva normal, nose normal , ears normal, throat without erythema or exudates Neck: Supple, no adenopathy Lung: breath sounds symmetric, no wheezing, rales or rhonchi Chest: symmetric movement, nontender Heart: regular rate and rhythm, normal S1, S2 no murmurs or rubs Abdomen: soft, non-tender, nondistended, normal bowel sounds Back: no vertebral tenderness, no CVAT Extremities: no deformities, moves all extremities symmetrically Neuro: Awake, alert, oriented, normal speech, cranial nerves intact, moves all extremities symmetrically Psych: Initially the patient was uncooperative but became cooperative during my evaluation Medical Decision Making Medical Decision Making MDM Narrative: 33-year-old female with history of alcohol use disorder and cocaine use disorder who presents emergency department by ambulance for evaluation of acute intoxication. The patient states she lives with her mother but her mother would not let her in the house since she was intoxicated and her mother called an ambulance. Patient's vital signs revealed an elevated blood pressure but this is most likely secondary to stress and anxiety. Her exam was otherwise unremarkable. The patient does not want any further evaluation and does not want to talk to our crisis counselors about her alcohol or cocaine use disorder. I did try to encourage her to stay and get some help however she wants to leave. Patient is capable of understanding the consequences of her decisions therefore she was discharged. She was given the [facility] phone number and are detox referral list. I did tell her that she can return to the emergency depart any time and we can try to help her with her addictions. The patient denied being suicidal or homicidal Differential diagnosis: Acute alcohol intoxication, electrolyte abnormalities, anemia, suicidal ideation, homicidal ideation Patient was discharged home Chronic Conditions Patient?s care impacted by: Other (Cocaine use disorder, alcohol use disorder) Discharge Plan Discharge Clinical Impression: Alcohol use disorder, Cocaine use Patient Disposition: Home, Self-Care Instructions: Cocaine Abuse (ED), Abuse of Alcohol (ED) Additional Instructions: At this time, you are not suicidal or homicidal and you understand the consequences of continuing to use alcohol and cocaine. You do not want to stay to be seen by our crisis counselors. If you change your mind you can return to the emergency department and we can try to help you. I want you to call the outpatient counseling service, [facility] ([facility]). Their phone number is [phone]. We are also giving you a list of detox programs, you can call them in the morning and if they have an available spot they will take him into their program. You can try calling them every day until you get into a program. Follow-up with your doctor in 2 days. Please return to the emergency department if your symptoms get worse or if you develop any symptoms that are concerning to you. Prescriptions: No Action lidocaine [Lidoderm] 5 % adhesive patch,medicated 1 patch topical DAILY Qty: 15 0RF Rx Instructions: leave on most painful area for up to 12 hrs naproxen 500 mg tablet 500 mg PO Q8-12H PRN (Reason: pain (scale score 4-6)) Qty: 14 0RF acetaminophen [Tylenol Extra Strength] 500 mg tablet 500 mg PO Q6H PRN (Reason: pain (scale score 4-6)) Qty: 14 0RF quetiapine [Seroquel] 100 mg tablet 100 mg PO TID clonidine HCl 0.2 mg tablet 0.2 mg PO BID
[2023-09-01 03:24] VITALS: BP 146/90; PULSE 68; RESP 17; TEMP 36.3; O2SAT 96; BMI 22.1
== END 2023-09-01 03:36 | disposition home or self-care (01) ==
LOC: HO.ED 03:31
PROVIDERS: Emergency Provider Emergency Medicine Emergency Medical Services
DX: F10.129 Alcohol abuse with intoxication, unspecified (principal); F14.90 Cocaine use, unspecified, uncomplicated
CPT/HCPCS: 99283; 99284

== ENCOUNTER 2023-09-27 11:38 | Emergency (ER) | payer MEDICARE, MEDICAID, SELFPAY ==
[2023-09-27 12:06] VITALS: BP 137/89; PULSE 83; RESP 17; TEMP 37; O2SAT 99; BMI 21.9
--- NOTE | 2023-09-27 12:09 | ED.MEDCLEAR ---
HPI - Medical Clearance General Chief complaint: Medical Clearance Stated complaint: medical clearance Time Seen by Provider: 09/27/23 12:08 Source: patient and other (leadership coach ) Mode of arrival: ambulatory Limitations: no limitations History of Present Illness HPI Narrative: 33 year old female bola beltrán w/ betty leadership coach requesting Utox for clearance for [facility] program. Patient admits to cocaine use 5 days ago and marijuana. Recovering alcoholic 1 week ago. No SI or HI. No medical complaints. Related Information Home Medications Medication Instructions Recorded Confirmed clonidine HCl 0.2 mg tablet 0.2 mg PO BID 05/29/22 05/29/22 quetiapine 100 mg tablet (Seroquel) 100 mg PO TID 05/29/22 05/29/22 Previous Rx's Medication Instructions Recorded acetaminophen 500 mg tablet 500 mg PO Q6H PRN pain (scale 06/02/23 (Tylenol Extra Strength) score 4-6) #14 tabs lidocaine 5 % topical patch 1 patch topical DAILY #15 ea 06/02/23 (Lidoderm) naproxen 500 mg tablet 500 mg PO Q8-12H PRN pain (scale 06/02/23 score 4-6) #14 tabs Allergies Allergy/AdvReac Type Severity Reaction Status Date / Time No Known Allergies Allergy Verified 09/27/23 12:06 Review of Systems Review of Systems: Constitutional : No Weight loss, No Fever, No Chills, No Fatigue, No Malaise ENT/Mouth : No sore throat, No Rhinorrhea Eyes: No Eye Pain, No Swelling, No Redness Cardiovascular : No Chest Pain, No SOB, No Dyspnea on Exertion, No Orthopnea, No Edema, No Palpitations Respiratory : No Cough, No Sputum, No Wheezing Gastrointestinal : No Nausea, No Vomiting, No Diarrhea, No Constipation, No abdominal Pain, No Hematochezia, No Melena Genitourinary : No Dysuria, No Urinary Frequency, No Hematuria, Musculoskeletal : No joint pain, No Myalgias, No Joint Swelling Skin : No Skin Lesions, No rash Neuro : No Weakness, No Numbness, No Dizziness, No Headache Psych : No Anxiety/Panic, No Depression All other systems reviewed and are negative Yes all other systems are reviewed and are negative [facility] Past Medical History Attestation statement: The following information was validated with the patient. Source: old records reviewed and nursing notes reviewed Medical History UTI (urinary tract infection) Surgical History Tubal ligation status Social History Social History Housing: Homeless Unable to assess alcohol history related to: Refusing to respond Alcohol intake: current Alcohol intake frequency: a few times a month Patient Tobacco Use Status: Current everyday Tobacco user Tobacco use type: Cigarette e-Cigarette/Vaping Use: Never Used Second Hand Smoke Exposure: Yes Substance Use Type: Marijuana service: No Current occupational status: unemployed and disabled Current occupational exposures/hazards: No Physical Exam Vital Signs: Vital Signs: Last Vital Signs Temp 98.6 F 09/27/23 12:06 Pulse 83 09/27/23 12:06 Resp 17 09/27/23 12:06 BP 137/89 09/27/23 12:06 Pulse Ox 99 09/27/23 12:06 O2 Del Method Room Air 09/27/23 12:06 BMI result Body Mass Index 21.9 vss Appearance: Alert.? Oriented X3.? No acute distress.? Head: Normocephalic, atraumatic, no step-offs or deformities Eyes: Pupils equal, round and reactive to light.? Neck: Normal inspection.? Neck supple.? CVS: Pulses normal.? Respiratory: No respiratory distress.? ? Skin: Skin warm and dry.? Normal skin color.? Normal skin turgor.? Extremities: 5/5 strength to bilateral upper and lower extremities Neuro: Oriented X 3.? No motor deficit.? No sensory deficit. Course Reevaluation(s) Reevaluation #1: Educated patient on diagnosis and treatment plan, answered all question, patient verbalizes understanding. At this time patient will be discharged home, advised to return with new or worsening symptoms. Educated on worrisome signs and symptoms and when to return. At this time I feel comfortable discharge home. Time: 12:13 Medical Decision Making Medical Decision Making MDM Narrative: 33-year-old female presents requesting drug screening test to get into recovery program. No medical complaints. Physical exam benign Likely normal exam and polysubstance abuse. Unlikley metabolic derangments. Plan.- antonio Differential Diagnosis Differential Diagnoses: The differential diagnosis associated with the presentation includes Likely normal exam and polysubstance abuse. Unlikley metabolic derangments. Admission/Observation Consideration of admission/observation: Escalation of care including admission/observation considered Unlikely Independent Historian Clinical information obtained from an independent historian. History obtained from or confirmed by: Other (leadership coach ) External Record Review External record reviewed: Inpatient record, Office record, Outpatient record, Prior outpatient labs, Prior outpatient radiology, Primary care record and Outside ED record Chronic Conditions Patient?s care impacted by: Other (polysubstance, anxiety, depression, ptsd, bipolar, ) Social Determinants Patient?s care significantly limited by Social Determinants of Health including: Inadequate housing, Low income, Alcoholism and drug addiction in family, Problems related to primary support group, Unemployment, Problems related to employment and Other Social Determinant of Health Discharge Plan Discharge Clinical Impression: Encounter for drug screening Additional Instructions: Take your medications as prescribed. If you were prescribed antibiotics today, it is important that you take your medication to their entirety, do not skip any doses, do not finish them early. Follow-up with your primary care provider this week. Return to the emergency department with new or worsening symptoms. In case of emergency call 911 Prescriptions: No Action lidocaine [Lidoderm] 5 % adhesive patch,medicated 1 patch topical DAILY Qty: 15 0RF Rx Instructions: leave on most painful area for up to 12 hrs naproxen 500 mg tablet 500 mg PO Q8-12H PRN (Reason: pain (scale score 4-6)) Qty: 14 0RF acetaminophen [Tylenol Extra Strength] 500 mg tablet 500 mg PO Q6H PRN (Reason: pain (scale score 4-6)) Qty: 14 0RF quetiapine [Seroquel] 100 mg tablet 100 mg PO TID clonidine HCl 0.2 mg tablet 0.2 mg PO BID Referrals: ED Physician,Generic [Emergency Provider] - 2 days Stand Alone Forms: Work/School Release
[2023-09-27 12:36] LABS: Amphetamine Screen Urine Not Detected (Not Detect); Barbiturates, Urine Not Detected (Not Detect); Benzodiazepines Screen Urine Not Detected (Not Detect); Cannabinoid Screen Urine POSITIVE (Not Detect); Cocaine Screen Urine Not Detected (Not Detect); Fentanyl, urine Not Detected (Not Detect); Opiate Screen Urine Not Detected (Not Detect); Phencyclidine Screen Urine Not Detected (Not Detect)
[2023-09-27 12:54] VITALS: BP 140/85; PULSE 81; RESP 16; TEMP 37.1; O2SAT 99
== END 2023-09-27 12:55 | disposition home or self-care (01) ==
PROVIDERS: Physician Assistant; Emergency Provider Emergency Medicine
DX: F14.10 Cocaine abuse, uncomplicated (principal); F12.10 Cannabis abuse, uncomplicated; F17.210 Nicotine dependence, cigarettes, uncomplicated; F33.1 Major depressive disorder, recurrent, moderate; F43.10 Post-traumatic stress disorder, unspecified; Z02.83 Encounter for blood-alcohol and blood-drug test; Z79.899 Other long term (current) drug therapy
CPT/HCPCS: 80307; 99282